=== PATIENT | male | born 1945 | race Caucasian/White ===

== ENCOUNTER 2018-11-07 06:59 | Emergency (ER) | payer BC, MEDICARE ==
[2018-11-07 07:55] LABS: Basophils % (A) 1 %; Eosinophils # (A) 0.3 k/uL (0-0.7); Eosinophils % (A) 5 %; HCT 41.1 % (39.0-53.0); HGB 13.8 gm/dL (13.0-17.5); Lymphocytes # (A) 1.9 k/uL (1.0-4.8); Lymphocytes % (A) 28 %; MCH 30.4 pg (25.0-35.0); MCHC 33.5 g/dL (31.0-37.0); MCV 90.7 fL (80.0-100.0); Mean Platelet Volume 6.4; Monocytes # (A) 0.6 k/uL (0-1.0); Monocytes % (A) 9 %; Neutrophils # (A) 3.6 k/uL (1.3-7.7); Neutrophils % (A) 54 %; Platelet Count 248 k/uL (150-450); RBC 4.53 m/uL (4.30-5.90); RDW 14.2 % (11.5-15.5); WBC 6.7 k/uL (3.8-10.6)
[2018-11-07 08:03] LABS: ALT 34 U/L (21-72); AST 45 U/L (17-59); African American GFR (CKD) >90 (>60 ml/min/1.73 sqM); Albumin 4.2 g/dL (3.5-5.0); Alkaline Phosphatase 78 U/L (38-126); Anion Gap 8 mmol/L; Blood Urea Nitrogen 18 mg/dL (9-20); Calcium 9.6 mg/dL (8.4-10.2); Carbon Dioxide 25 mmol/L (22-30); Chloride 109 mmol/L (98-107); Creatine Kinase 110 U/L (55-170); Glucose 103 mg/dL (74-99); Magnesium 1.9 mg/dL (1.6-2.3); Potassium 4.1 mmol/L (3.5-5.1); Sodium 142 mmol/L (137-145); Total Bilirubin 0.4 mg/dL (0.2-1.3)
[2018-11-07 08:06] LABS: Partial Thromboplastin Time 23.1 sec (22.0-30.0); Prothrombin Time 10.2 sec (9.0-12.0)
[2018-11-07 08:18] VITALS: TEMP 97.9
[2018-11-07 08:24] VITALS: PULSE 58
--- NOTE | 2018-11-07 08:31 | CT ---
EXAMINATION TYPE: CT brain wo con DATE OF EXAM: 11/07/2018 COMPARISON: None HISTORY: Neuro deficits CT DLP: 1099.[address] of the head is obtained. The ventricles, basal cisterns and sulci overlying the conve xities are consistent with the patient's age. Mild generalized degenerative change. The calvarium is intact. No midline shift. Intracranial atherosclerotic changes. Very minimal nonspecific white matter finding s. IMPRESSION: 1. No evidence of acute hemorrhage or mass effect. If symptoms there is clinical concern for acute ischemia correlate with MRI as clinically warranted. 2. Very minimal to mild nonspecific low-attenuation the white matter most typical remote microvascula r ischemia.
--- NOTE | 2018-11-07 08:39 | XR ---
EXAMINATION TYPE: XR cervical spine comp DATE OF EXAM: 11/07/2018 COMPARISON: NONE HISTORY: Pain TECHNIQUE: Four views are submitted. FINDINGS: The odontoid is intact. There are no compression deformities. The prevertebral soft tissue structur es are within normal limits. Severe degenerative disc disease C4-C5. Posterior spondylosis noted. Mu ltilevel mild to moderate remaining degenerative disc disease. Calcifications in the soft tissues of the neck likely related atherosclerotic change of the carotid arteries. Foraminal encroachment suspec sabiha at multiple levels bilaterally. IMPRESSION: 1. Severe degenerative disc disease C4-C5. Slight anterolisthesis of C3 relative to C4. Multilevel fo raminal encroachment suspected recommend follow-up MRI..
--- NOTE | 2018-11-07 08:40 | XR ---
EXAMINATION TYPE: XR shoulder complete RT DATE OF EXAM: 11/07/2018 COMPARISON: NONE HISTORY: Pain TECHNIQUE: Three views are submitted. FINDINGS: The osseous structures are intact. There is no acute fracture or dislocation. Arthropathy of the AC joint. Chronic rib deformities noted.. IMPRESSION: 1. AC joint arthropathy.
--- NOTE | 2018-11-07 08:40 | XR ---
EXAMINATION TYPE: XR chest 2V DATE OF EXAM: 11/07/2018 COMPARISON: NONE TECHNIQUE: PA and lateral views submitted. HISTORY: Altered mental status FINDINGS: The lungs are clear and there is no pneumothorax, pleural effusion, or focal pneumonia. Chronic rib deformities on the right noted. Atherosclerotic change aorta. Biapical pleural thickening. No overt failure. Hyperinflation suggests COPD. IMPRESSION: 1. No acute process. Correlate for COPD.
[2018-11-07 09:05] VITALS: BP 151/82; RESP 15
--- NOTE | 2018-11-07 09:47 | ED ---
Neuro HPI - General Chief Complaint: Neuro Symptoms/Deficit Stated Complaint: Hand/Arm Numbness Time Seen by Provider: 11/07/18 07:14 Source: patient, RN notes reviewed Mode of arrival: wheelchair Limitations: physical limitation - History of Present Illness Is the patient presenting with stroke symptoms?: No Initial Comments: This is a 73-year-old male with no history of stroke who states she's been having problems with right shoulder for a long time and intermittently will wake up with numbness or discomfort in his right hand which usually he is able shake off a gets better quickly this morning he had the onset this morning of pain with numbness to his second third and fourth fingers state states did not shake out like it normally does. No headache no blurry vision no focal weakness no fevers chills nausea vomiting sweats no trauma he states he was doing a lot of yard work. No history of any radicular pain or neck injury. - Related Data Home Medications: Home Medications Medication Instructions Recorded Confirmed Ascorbic Acid [Vitamin C] 500 mg PO DAILY 11/07/18 11/07/18 Aspirin EC [Ecotrin Low Dose] 81 mg PO DAILY 11/07/18 11/07/18 Calcium Carbonate [Calcium] 600 mg PO DAILY 11/07/18 11/07/18 Fish Oil/Dha/Epa [Fish Oil 1,200 2 cap PO HS 11/07/18 11/07/18 mg Fish Oil] Lisinopril [Zestril] 5 mg PO DAILY 11/07/18 11/07/18 Multivitamins, Thera [Multivitamin 1 tab PO DAILY 11/07/18 11/07/18 (formulary)] Omeprazole [PriLOSEC] 20 mg PO DAILY 11/07/18 11/07/18 Simvastatin [Zocor] 40 mg PO HS 11/07/18 11/07/18 Thiamine [Vitamin B-1] 100 mg PO DAILY 11/07/18 11/07/18 Vitamin A Acetate [Vitamin A] 10,000 unit SUBLINGUAL DAILY 11/07/18 11/07/18 Previous Rx's Medication Instructions Recorded Cyclobenzaprine [Flexeril] 10 mg PO TID #14 tab 11/07/18 predniSONE 20 mg PO BID #10 tab 11/07/18 Allergies/Adverse Reactions: Allergies Allergy/AdvReac Type Severity Reaction Status Date / Time No Known Allergies Allergy Verified 11/07/18 07:28 Review of Systems ROS Statement: Those systems with pertinent positive or pertinent negative responses have been documented in the HPI. ROS Other: All systems not noted in ROS Statement are negative. General Exam - General Exam Comments Initial Comments: This is a well-developed well-nourished awake alert oriented 3 male Limitations: physical limitation General appearance: alert, in no apparent distress Head exam: Present: atraumatic, normocephalic, normal inspection Eye exam: Present: normal appearance, PERRL, EOMI. Absent: scleral icterus, conjunctival injection, periorbital swelling ENT exam: Present: normal exam, mucous membranes moist Neck exam: Present: normal inspection, full ROM, other (No stridor JVD or bruits). Absent: tenderness, meningismus, lymphadenopathy Respiratory exam: Present: normal lung sounds bilaterally. Absent: respiratory distress, wheezes, rales, rhonchi, stridor Cardiovascular Exam: Present: regular rate, normal rhythm, normal heart sounds. Absent: systolic murmur, diastolic murmur, rubs, gallop, clicks GI/Abdominal exam: Present: soft, normal bowel sounds. Absent: distended, tenderness, guarding, rebound, rigid Extremities exam: Present: normal inspection, full ROM, tenderness (Tennis palpation of the deltoid and anterior glenoid region no step-off or crepitation mild tenderness palpation of the triceps on the right. Capillary refills less than 2 seconds no current motor vascular deficits), normal capillary refill. Absent: pedal edema, joint swelling, calf tenderness Back exam: Present: normal inspection, full ROM, tenderness (Some mild tendern ess palpation of the right trapezius and right shoulder area.). Absent: CVA tenderness (R), CVA tenderness (L), rash noted Neurological exam: Present: alert, oriented X3, CN II-XII intact, motor sensory deficit (Very fine sensory deficit to light touch over the second third and fourth fingertips) Psychiatric exam: Present: normal affect, normal mood Skin exam: Present: warm, dry, intact, normal color. Absent: rash Stroke MDM - Lab Data Result diagrams: 11/07/18 07:35 11/07/18 07:35 Lab Results 11/07/18 11/07/18 11/07/18 Range/Units 07:35 07:35 07:35 WBC 6.7 (3.8-10.6) k/uL RBC 4.53 (4.30-5.90) m/uL Hgb 13.8 (13.0-17.5) gm/dL Hct 41.1 (39.0-53.0) % MCV 90.7 (80.0-100.0) fL MCH 30.4 (25.0-35.0) pg MCHC 33.5 (31.0-37.0) g/dL RDW 14.2 (11.5-15.5) % Plt Count 248 (150-450) k/uL Neutrophils % 54 % Lymphocytes % 28 % Monocytes % 9 % Eosinophils % 5 % Basophils % 1 % Neutrophils # 3.6 (1.3-7.7) k/uL Lymphocytes # 1.9 (1.0-4.8) k/uL Monocytes # 0.6 (0-1.0) k/uL Eosinophils # 0.3 (0-0.7) k/uL Basophils # 0.0 (0-0.2) k/uL PT 10.2 (9.0-12.0) sec INR 1.0 (<1.2) APTT 23.1 (22.0-30.0) sec Sodium 142 (137-145) mmol/L Potassium 4.1 (3.5-5.1) mmol/L Chloride 109 H (98-107) mmol/L Carbon Dioxide 25 (22-30) mmol/L Anion Gap 8 mmol/L BUN 18 (9-20) mg/dL Creatinine 0.78 (0.66-1.25) mg/dL Est GFR (CKD-EPI)AfAm >90 (>60 ml/min/1.73 sqM) Est GFR (CKD-EPI)NonAf 89 (>60 ml/min/1.73 sqM) Glucose 103 H (74-99) mg/dL Calcium 9.6 (8.4-10.2) mg/dL Magnesium 1.9 (1.6-2.3) mg/dL Total Bilirubin 0.4 (0.2-1.3) mg/dL AST 45 (17-59) U/L ALT 34 (21-72) U/L Alkaline Phosphatase 78 (38-126) U/L Creatine Kinase 110 (55-170) U/L Troponin I (0.000-0.034) ng/mL Total Protein 7.0 (6.3-8.2) g/dL Albumin 4.2 (3.5-5.0) g/dL 11/07/18 Range/Units 07:35 WBC (3.8-10.6) k/uL RBC (4.30-5.90) m/uL Hgb (13.0-17.5) gm/dL Hct (39.0-53.0) % MCV (80.0-100.0) fL MCH (25.0-35.0) pg MCHC (31.0-37.0) g/dL RDW (11.5-15.5) % Plt Count (150-450) k/uL Neutrophils % % Lymphocytes % % Monocytes % % Eosinophils % % Basophils % % Neutrophils # (1.3-7.7) k/uL Lymphocytes # (1.0-4.8) k/uL Monocytes # (0-1.0) k/uL Eosinophils # (0-0.7) k/uL Basophils # (0-0.2) k/uL PT (9.0-12.0) sec INR (<1.2) APTT (22.0-30.0) sec Sodium (137-145) mmol/L Potassium (3.5-5.1) mmol/L Chloride (98-107) mmol/L Carbon Dioxide (22-30) mmol/L Anion Gap mmol/L BUN (9-20) mg/dL Creatinine (0.66-1.25) mg/dL Est GFR (CKD-EPI)AfAm (>60 ml/min/1.73 sqM) Est GFR (CKD-EPI)NonAf (>60 ml/min/1.73 sqM) Glucose (74-99) mg/dL Calcium (8.4-10.2) mg/dL Magnesium (1.6-2.3) mg/dL Total Bilirubin (0.2-1.3) mg/dL AST (17-59) U/L ALT (21-72) U/L Alkaline Phosphatase (38-126) U/L Creatine Kinase (55-170) U/L Troponin I <0.012 (0.000-0.034) ng/mL Total Protein (6.3-8.2) g/dL Albumin (3.5-5.0) g/dL - NIH Stroke Scale 1a. Level of Consciousness: (0) alert 1b. LOC Questions: (0) answers correctly 1c. LOC Commands: (0) performs tasks correctly 2. Best Gaze: (0) normal 3. Visual: (0) no visual loss 4. Facial Palsy: (0) normal symmetrical movement 5a. Motor Arm Left: (0) no drift 5b. Motor Arm Right: (0) no drift 6a. Motor Leg Left: (0) no drift 6b. Motor Leg Right: (0) no drift 7. Limb Ataxia: (0) absent 8. Sensory: (1) mild/moderate sensory loss 9. Best Language: (0) no aphasia 10. Dysarthria: (0) normal 11. Extinction/Inattention: (0) no abnormality - Medical Decision Making The patient was reevaluated his symptoms resolved the presentation is consistent with a radicular etiology. I did discuss the CT results with him which did indicate some white matter changes. X-ray showed evidence of COPD the patient is a former smoker he quit about 20 years ago. He'll be discharged with follow- up with his doctor we placed on short course of anti-inflammatories - EKG Data -: EKG Interpreted by Me EKG shows normal: sinus rhythm (sinus bradycardia rate of 56 . Interval 200 QRS 100 QT since QTC 398/[address]-T wave changes) Past Medical History Past Medical History: Cancer, Hyperlipidemia, Hypertension Additional Past Medical History / Comment(s): skin cancer History of Any Multi-Drug Resistant Organisms: None Reported Additional Past Surgical History / Comment(s): Skin Cancer Past Psychological History: No Psychological Hx Reported Smoking Status: Never smoker Past Alcohol Use History: None Reported Past Drug Use History: None Reported Course Vital Signs 11/07/18 11/07/18 11/07/18 07:02 07:30 08:00 Temperature 97.8 F 97.9 F Pulse Rate 78 58 L Respiratory 18 16 Rate Blood Pressure 159/99 158/95 O2 Sat by Pulse 98 96 Oximetry 11/07/18 11/07/18 08:30 09:00 Temperature Pulse Rate 58 L Respiratory 15 Rate Blood Pressure 140/83 151/82 O2 Sat by Pulse 95 Oximetry - Reevaluation(s) Reevaluation #1: 11/07/18 09:47 Reevaluation patient reveals resolution of the symptoms. Disposition Clinical Impression: Cervical radiculopathy Disposition: HOME SELF-CARE Condition: Good Instructions (If sedation given, give patient instructions): Cervical Radiculopathy (ED) Prescriptions: Cyclobenzaprine [Flexeril] 10 mg PO TID #14 tab predniSONE 20 mg PO BID #10 tab Is patient prescribed a controlled substance at d/c from ED?: No Referrals: Avani Yeh MD [Primary Care Provider] - 1-2 days
== END 2018-11-07 10:10 | disposition home or self-care (01) ==
LOC: EC 06:59
DX: M50.121 Cervical disc disorder at C4-C5 level with radiculopathy (principal); I10 Essential (primary) hypertension; E78.5 Hyperlipidemia, unspecified; Z79.82 Long term (current) use of aspirin; Z79.899 Other long term (current) drug therapy; Z85.828 Personal history of other malignant neoplasm of skin
CPT/HCPCS: 36415; 70450; 71046; 72050; 80053; 82550; 83735; 84484; 85025; 85610; 85730; 93005; 99284

== ENCOUNTER → 2019-02-16 | Outpatient (CLI) | payer MEDICARE ==
--- NOTE | 2019-02-16 09:44 | MR ---
EXAMINATION TYPE: MR cervical spine wo con DATE OF EXAM ORDERED: 02/16/2019 9:23 AM HISTORY: M54.12 - Radiculopathy, cervical region. TECHNOLOGIST HISTORY AT TIME OF EXAM: Pain/weakness into fingers COMPARISON: None. TECHNIQUE: Multiplanar, multiecho imaging of the cervical spine was obtained without contrast on a 1 .5 braxton magnet. FINDINGS: Prevertebral soft tissues are normal. Vertebral body height and alignment are maintained. Atlantoaxial relationships are normal. There is a normal craniocervical junction. Cord signal is normal. Visualization of the cord below the level of C6 is marked by motion artifact. At C2-C3, no definite abnormality is seen. At C3-C4, there is mild, bilateral intervertebral foraminal narrowing, slightly greater on the right than left. There is a mild, diffuse disc displacement. There is mild uncovertebral joint disease. At C4-C5, there is disc space loss and hypertrophic spondylosis present bilaterally. There is bilater al intervertebral foraminal narrowing, slightly greater on the right than the left. There is no signi ficant compressive discopathy. There is mild uncovertebral joint disease. The facets are unremarkable . At C5-C6, there is a broad-based disc protrusion touching the spinal cord without displacement or com pression. There is mild right-sided intervertebral foraminal narrowing. The facets are unremarkable. There is mild uncovertebral joint disease. At C6-C7, there is mild right-sided intervertebral foraminal narrowing. There is disc space loss. The re is a diffuse disc displacement with cord contact but without compression. The facets are unremarka ble. There is minimal uncovertebral joint disease. At C7-T1, limited views demonstrate no definite abnormality IMPRESSION: 1. MILD DIFFUSE DEGENERATIVE DISC DISEASE. 2. MULTILEVEL INTERVERTEBRAL FORAMINAL NARROWING. 3. RIGHT BASILAR PROTRUSION, C5-6 WITH CORD CONTACT BUT WITHOUT COMPRESSION.
== END | disposition home or self-care (01) ==
LOC: RADMRIMAIN 08:52
PROVIDERS: ATTEND Family Medicine
DX: M50.30 Other cervical disc degeneration, unspecified cervical region (principal); M48.04 Spinal stenosis, thoracic region
CPT/HCPCS: 72141

== ENCOUNTER → 2020-05-05 | Outpatient (CLI) | payer MEDICARE ==
--- NOTE | 2020-05-05 13:43 | P.STRESS ---
- Stress Test Note Stress Test Results/Findings: Exam Performed: stress echo exercise Exam Date: 05/05/20 Reason for Exam: DYSPNEA, HTN Height: 5 ft 11 in Weight: 82 kg Protocol: STRESS ECHO EXERCISE Stage: 2 Duration of Exercise: 4:07 Resting Heart Rate: 79 Resting Blood Pressure: 143/94 Maximum Achieved Heart Rate: 143 Maximum Achieved Blood Pressure: 196/62 85% PMHR: 122 100% PMHR: 143 METS: 5.8 Technologist Comment: Stress Test Results/Findings: Patient underwent exercise stress echo with a Dagoberto protocol treadmill stress test. Patient exercised into Stage 2 for a total of 4 minutes 7 seconds reaching a total of 5.8 METS. Patient's maximum heart rate was 143 which represented 100 % age-predicted maximum heart rate. Stress EKG portion: At baseline patient's EKG showed normal sinus rhythm, normal axis, no significant ST or T wave abnormalities. At peak exercise, EKG showed mild 0.[address] depression in the lateral leads which is nonspecific. Stress echo portion: 2-D echocardiogram was performed in the parasternal long, personal short, apical 2 and apical four-chamber views at rest, peak exercise and in recovery. At baseline, echocardiogram showed left ventricular ejection fraction 60 % without wall motion abnormalities. With peak exercise, echocardiogram shows improvement in left ventricular ejection fraction, increase contractility, decrease in left ventricular dimension without wall motion abnormalities consistent with a normal response to exercise. Conclusions: 1. Normal EKG and echo response to exercise without evidence of inducible ischemia. 2. Poor exercise capacity.
--- NOTE | 2020-05-06 08:00 | ECHOF ---
Referral Reason:I10 hypertensin R06.00 dyspnea MEASUREMENTS -------- HEIGHT: 180.3 cm WEIGHT: 81.6 kg BP: 143/94 RVIDd: 3.4 cm (< 3.3) IVSd: 1.2 cm (0.6 - 1.1) LVIDd: 4.5 cm (3.9 - 5.3) LVPWd: 1.2 cm (0.6 - 1.1) IVSs: 2.1 cm LVIDs: 2.2 cm LVPWs: 1.6 cm LA Diam: 3.2 cm (2.7 - 3.8) LAESV Index (A-L): 18.38 ml/m Ao Diam: 3.5 cm (2.0 - 3.7) AV Cusp: 2.6 cm (1.5 - 2.6) MV EXCURSION: 15.965 mm (> 18.000) MV EF SLOPE: 66 mm/s (70 - 150) EPSS: 0.4 cm MV E Hilario: 0.87 m/s MV DecT: 303 ms MV A Hilario: 1.15 m/s MV E/A Ratio: 0.75 RAP: 5.00 mmHg RVSP: 26.68 mmHg FINDINGS -------- Sinus rhythm. This was a technically good study. The left ventricular size is normal. There is borderline concentric left ventricular hypertrophy. Overall left ventricular systolic function is normal with, an EF between 60 - 65 %. The right ventricle is mildly enlarged. Normal LA size by volume 22+/-6 ml/m2. The right atrium is normal in size. Interatrial and interventricular septum intact. The aortic valve is trileaflet and appears structurally normal. The mitral valve is normal. Mild tricuspid regurgitation present. Right ventricular systolic pressure is normal at < 35 mmHg. Trace/mild (physiologic) pulmonic regurgitation. The aortic root size is normal. IVC Not well visulized. There is no pericardial effusion. CONCLUSIONS -------- 1. The left ventricular size is normal. 2. There is borderline concentric left ventricular hypertrophy. 3. Overall left ventricular systolic function is normal with, an EF between 60 - 65 %. 4. The right ventricle is mildly enlarged. 5. Normal LA size by volume 22+/-6 ml/m2. 6. Mild tricuspid regurgitation present. 7. Trace/mild (physiologic) pulmonic regurgitation. 8. There is no pericardial effusion. MEDICAL ACCOUNTANT: Gracy Amato RDCS
== END | disposition home or self-care (01) ==
LOC: RADNMMAIN 09:02
PROVIDERS: ATTEND Family Medicine
DX: I07.1 Rheumatic tricuspid insufficiency (principal); I37.1 Nonrheumatic pulmonary valve insufficiency; I11.9 Hypertensive heart disease without heart failure; R06.00 Dyspnea, unspecified
CPT/HCPCS: 93306; 93351

== ENCOUNTER → 2020-05-07 | Outpatient (CLI) | payer MEDICARE ==
--- NOTE | 2020-05-07 08:09 | US ---
EXAMINATION TYPE: US carotid duplex BILAT DATE OF EXAM: 05/07/2020 COMPARISON: NONE CLINICAL HISTORY: R09.89 Carotid Bruit, R06.00 Dyspnea. Bruit EXAM MEASUREMENTS: RIGHT: Peak Systolic Velocity (PSV) cm/sec ----- Right CCA: 105.5 ----- Right ICA: 73.9 ----- Right ECA: 73.0 ICA/CCA ratio: 0.7 RIGHT: End Diastole cm/sec ----- Right CCA: 32.8 ----- Right ICA: 32.0 ----- Right ECA: 14.5 LEFT: Peak Systolic Velocity (PSV) cm/sec ----- Left CCA: 76.3 ----- Left ICA: 98.9 ----- Left ECA: 75.3 ICA/CCA ratio: 1.3 LEFT: End Diastole cm/sec ----- Left CCA: 30.1 ----- Left ICA: 44.8 ----- Left ECA: 19.3 VERTEBRALS (direction of flow): Right Vertebral: Antegrade Left Vertebral: Antegrade Rhythm: Normal Mild peripheral plaque bilateral carotid bulb level. Velocity measurements and ratios remain within normal limits in the visualized portion of both quality assurance intern al carotid arteries. IMPRESSION: No hemodynamically significant stenosis seen in either internal carotid artery. Criteria for Assigning % of Stenosis / Diameter reduction (Estimation based on the indirect measurements of the internal carotid artery velocities (ICA PSV). 1. Normal (no stenosis)=ICA PSV < 125 cm/s: ratio < 2.0: ICA EDV<40 cm/s. 2. Less than 50% stenosis=ICA PSV < 125 cm/s: ratio < 2.0: ICA EDV<40 cm/s. 3. 50 to 69% stenosis=ICA PSV of 125 to 230 cm/s: ration 2.0 ? 4.0: ICA EDV 40-100 cm/s. 4. Greater than 70% stenosis to near occlusion= ICA PSV > 230 cm/s: ratio > 4.0: ICA EDV > 100 cm/s. 5. Near occlusion= ICA PSV velocities may be low or undetectable: variable ratio and ICA EDV. 6. Total occlusion=unable to detect flow.
== END | disposition home or self-care (01) ==
LOC: RADUSWWP 07:33
PROVIDERS: ATTEND Family Medicine
DX: R09.89 Other specified symptoms and signs involving the circulatory and respiratory systems (principal)
CPT/HCPCS: 93880

== ENCOUNTER 2022-01-15 21:42 | Emergency (ER) | payer MEDICARE ==
[2022-01-15 22:22] VITALS: BP 139/84; PULSE 89; RESP 20; TEMP 97.7
[2022-01-16 00:14] LABS: Basophils # (A) 0.1 k/uL (0-0.2); Basophils % (A) 1 %; Eosinophils # (A) 0.3 k/uL (0-0.7); Eosinophils % (A) 3 %; HCT 37.3 % (39.0-53.0); HGB 12.1 gm/dL (13.0-17.5); Lymphocytes % (A) 32 %; MCH 29.4 pg (25.0-35.0); MCHC 32.4 g/dL (31.0-37.0); MCV 90.8 fL (80.0-100.0); Monocytes # (A) 0.9 k/uL (0-1.0); Monocytes % (A) 9 %; Neutrophils # (A) 4.8 k/uL (1.3-7.7); Neutrophils % (A) 52 %; Platelet Count 303 k/uL (150-450); RBC 4.11 m/uL (4.30-5.90); RDW 13.5 % (11.5-15.5); WBC 9.3 k/uL (3.8-10.6)
[2022-01-16 00:48] LABS: Albumin 4.5 g/dL (3.5-5.0); Calcium 9.8 mg/dL (8.4-10.2); Potassium 3.9 mmol/L (3.5-5.1); Total Bilirubin 0.3 mg/dL (0.2-1.3); Total Protein 6.9 g/dL (6.3-8.2)
--- NOTE | 2022-01-16 01:55 | ED ---
GI Bleed HPI - General Chief complaint: GI Bleed Stated complaint: GI Bleed Time Seen by Provider: 01/15/22 23:55 Source: patient Mode of arrival: ambulatory Limitations: no limitations - History of Present Illness Initial comments: This patient is 76-year-old man who presents with complaint that he is not having 3 days of passing blood with stool. He states that there has been no abdominal or perianal pain. He is not having symptoms of anemia. Patient describes a stool as being loose, like diarrhea and that there is bright red blood associated. No nausea or vomiting. MD complaint: blood streaked stool Onset/Timin -: days(s) Severity scale (1-10): 0 Quality: painless Consistency: constant Improves with: none Worsens with: none Associated Symptoms: denies other symptoms - Related Data Home Medications Medication Instructions Recorded Confirmed Ascorbic Acid [Vitamin C] 500 mg PO DAILY 11/07/18 11/07/18 Aspirin EC [Ecotrin Low Dose] 81 mg PO DAILY 11/07/18 11/07/18 Calcium Carbonate [Calcium] 600 mg PO DAILY 11/07/18 11/07/18 Fish Oil/Dha/Epa [Fish Oil 1,200 2 cap PO HS 11/07/18 11/07/18 mg Fish Oil] Multivitamins, Thera [Multivitamin 1 tab PO DAILY 11/07/18 11/07/18 (formulary)] Omeprazole [PriLOSEC] 20 mg PO DAILY 11/07/18 11/07/18 Simvastatin [Zocor] 40 mg PO HS 11/07/18 11/07/18 Thiamine [Vitamin B-1] 100 mg PO DAILY 11/07/18 11/07/18 Vitamin A Acetate [Vitamin A] 10,000 unit SUBLINGUAL DAILY 11/07/18 11/07/18 lisinopriL [Zestril] 5 mg PO DAILY 11/07/18 11/07/18 Previous Rx's Medication Instructions Recorded Cyclobenzaprine [Flexeril] 10 mg PO TID #14 tab 11/07/18 predniSONE [Deltasone] 20 mg PO BID #10 tab 11/07/18 Omeprazole 40 mg PO DAILY #10 cap 01/16/22 Allergies Allergy/AdvReac Type Severity Reaction Status Date / Time No Known Allergies Allergy Verified 01/15/22 22:22 Review of Systems ROS Statement: Those systems with pertinent positive or pertinent negative responses have been documented in the HPI. ROS Other: All systems not noted in ROS Statement are negative. Constitutional: Denies: fever, chills Respiratory: Denies: cough, dyspnea Cardiovascular: Denies: chest pain, palpitations, edema Gastrointestinal: Reports: diarrhea, hematochezia. Denies: abdominal pain, nausea, vomiting, constipation, melena Genitourinary: Denies: dysuria, hematuria Musculoskeletal: Denies: back pain Skin: Denies: rash Neurological: Denies: headache, weakness, numbness Past Medical History Past Medical History: Cancer, Hyperlipidemia, Hypertension Additional Past Medical History / Comment(s): skin cancer History of Any Multi-Drug Resistant Organisms: None Reported Additional Past Surgical History / Comment(s): Skin Cancer Past Psychological History: No Psychological Hx Reported Smoking Status: Never smoker Past Alcohol Use History: Occasional Past Drug Use History: None Reported General Exam Limitations: no limitations General appearance: alert, in no apparent distress Head exam: Present: atraumatic, normocephalic Eye exam: Present: normal appearance. Absent: scleral icterus, conjunctival injection ENT exam: Present: normal oropharynx Neck exam: Present: normal inspection Respiratory exam: Present: normal lung sounds bilaterally. Absent: respiratory distress, wheezes, rales, rhonchi, stridor Cardiovascular Exam: Present: regular rate, normal rhythm, normal heart sounds. Absent: systolic murmur, diastolic murmur, rubs, gallop GI/Abdominal exam: Present: soft. Absent: distended, tenderness, guarding, rebound, rigid, mass, pulsatile mass, hernia Extremities exam: Present: normal inspection, normal capillary refill. Absent: pedal edema, calf tenderness Back exam: Present: normal inspection. Absent: CVA tenderness (R), CVA tenderness (L) Neurological exam: Present: alert Skin exam: Present: warm, dry, intact, normal color. Absent: rash Course Vital Signs 01/15/22 22:16 Temperature 97.7 F Pulse Rate 89 Respiratory 20 Rate Blood Pressure 139/84 O2 Sat by Pulse 98 Oximetry Medical Decision Making - Lab Data Result diagrams: 01/16/22 00:03 01/16/22 00:03 Lab Results 01/16/22 01/16/22 01/16/22 Range/Units 00:03 00:03 00:03 WBC 9.3 (3.8-10.6) k/uL RBC 4.11 L (4.30-5.90) m/uL Hgb 12.1 L (13.0-17.5) gm/dL Hct 37.3 L (39.0-53.0) % MCV 90.8 (80.0-100.0) fL MCH 29.4 (25.0-35.0) pg MCHC 32.4 (31.0-37.0) g/dL RDW 13.5 (11.5-15.5) % Plt Count 303 (150-450) k/uL MPV 7.0 Neutrophils % 52 % Lymphocytes % 32 % Monocytes % 9 % Eosinophils % 3 % Basophils % 1 % Neutrophils # 4.8 (1.3-7.7) k/uL Lymphocytes # 3.0 (1.0-4.8) k/uL Monocytes # 0.9 (0-1.0) k/uL Eosinophils # 0.3 (0-0.7) k/uL Basophils # 0.1 (0-0.2) k/uL APTT 21.6 L (22.0-30.0) sec Sodium 140 (137-145) mmol/L Potassium 3.9 (3.5-5.1) mmol/L Chloride 106 (98-107) mmol/L Carbon Dioxide 21 L (22-30) mmol/L Anion Gap 13 mmol/L BUN 29 H (9-20) mg/dL Creatinine 1.33 H (0.66-1.25) mg/dL Est GFR (CKD-EPI)AfAm 59 (>60 ml/min/1.73 sqM) Est GFR (CKD-EPI)NonAf 51 (>60 ml/min/1.73 sqM) Glucose 116 H (74-99) mg/dL Calcium 9.8 (8.4-10.2) mg/dL Total Bilirubin 0.3 (0.2-1.3) mg/dL AST 41 (17-59) U/L ALT 35 (4-49) U/L Alkaline Phosphatase 72 (38-126) U/L Troponin I (0.000-0.034) ng/mL Total Protein 6.9 (6.3-8.2) g/dL Albumin 4.5 (3.5-5.0) g/dL Blood Type Blood Type Confirm Blood Type Recheck Bld Type Recheck Status Antibody Screen Spec Expiration Date 01/16/22 01/16/22 01/16/22 Range/Units 00:03 00:15 00:20 WBC (3.8-10.6) k/uL RBC (4.30-5.90) m/uL Hgb (13.0-17.5) gm/dL Hct (39.0-53.0) % MCV (80.0-100.0) fL MCH (25.0-35.0) pg MCHC (31.0-37.0) g/dL RDW (11.5-15.5) % Plt Count (150-450) k/uL MPV Neutrophils % % Lymphocytes % % Monocytes % % Eosinophils % % Basophils % % Neutrophils # (1.3-7.7) k/uL Lymphocytes # (1.0-4.8) k/uL Monocytes # (0-1.0) k/uL Eosinophils # (0-0.7) k/uL Basophils # (0-0.2) k/uL APTT (22.0-30.0) sec Sodium (137-145) mmol/L Potassium (3.5-5.1) mmol/L Chloride (98-107) mmol/L Carbon Dioxide (22-30) mmol/L Anion Gap mmol/L BUN (9-20) mg/dL Creatinine (0.66-1.25) mg/dL Est GFR (CKD-EPI)AfAm (>60 ml/min/1.73 sqM) Est GFR (CKD-EPI)NonAf (>60 ml/min/1.73 sqM) Glucose (74-99) mg/dL Calcium (8.4-10.2) mg/dL Total Bilirubin (0.2-1.3) mg/dL AST (17-59) U/L ALT (4-49) U/L Alkaline Phosphatase (38-126) U/L Troponin I <0.012 (0.000-0.034) ng/mL Total Protein (6.3-8.2) g/dL Albumin (3.5-5.0) g/dL Blood Type A Positive Blood Type Confirm A Positive Blood Type Recheck No Previous Record Bld Type Recheck Status CABO Indicated Antibody Screen NEGATIVE Spec Expiration Date 01/19/20222314 Disposition Clinical Impression: GI bleeding Disposition: HOME SELF-CARE Condition: Good Instructions (If sedation given, give patient instructions): Gastrointestinal Bleeding (ED) Prescriptions: Omeprazole 40 mg PO DAILY #10 cap Is patient prescribed a controlled substance at d/c from ED?: No Referrals: Patrica Rivera MD [Primary Care Provider] - 1-2 days
[2022-01-16] MEDS ORDERED: SULFAMETHOX-TMP 800-160MG 1 EACH TAB PO STA (04:13)
== END 2022-01-16 05:04 | disposition home or self-care (01) ==
LOC: EC 21:42
DX: K92.2 Gastrointestinal hemorrhage, unspecified (principal); E78.5 Hyperlipidemia, unspecified; I10 Essential (primary) hypertension
CPT/HCPCS: 36415; 80053; 84484; 85025; 85730; 86850; 86900; 86901

== ENCOUNTER 2022-02-01 09:42 | Day surgery (SDC) | payer MEDICARE ==
[2022-01-31 08:23] VITALS: BMI 24.4
[~2022-02-01 09:42] MED LIST: LACTATED RINGERS 1,000 ML IV SCH; LIDOCAINE 1% (10MG/ML) FOR IV START INTRADERMA PRN
[2022-02-01] MEDS ORDERED: LACTATED RINGERS 1,000 ML IV ONE (10:09)
[2022-02-01 10:21] VITALS: TEMP 97.8
[2022-02-01] MEDS ORDERED: PROPOFOL 10 MG/ML 20 ML VIAL IV ONE (11:10)
[2022-02-01] MEDS ORDERED: LIDOCAINE 2% INJ 20 MG/ML (2 ML VIAL) ONE (11:10)
--- NOTE | 2022-02-01 11:28 | P.PCN ---
Date of Procedure: 02/01/22 Procedure(s) Performed: BRIEF HISTORY: Patient is a 76-year-old pleasant white male scheduled for an elective colonoscopy as a part of evaluation of intermittent rectal bleeding for the last few days duration. PROCEDURE PERFORMED: Colonoscopy with biopsy. PREOPERATIVE DIAGNOSIS: Intermittent rectal bleeding. IV sedation per Anesthesia. PROCEDURE: After informed consent was obtained, the patient, was brought into the endoscopy unit. IV sedation was administered by Anesthesia under continuous monitoring. Digital rectal examination was normal. Initially the Olympus CF-160 flexible video colonoscope was then inserted in the rectum, gradually advanced into the cecum without any difficulty. Careful examination was performed as the scope was gradually being withdrawn. Ileocecal valve and the appendiceal orifice were visualized and appeared normal. Prep was excellent. Mucosa of the cecum, appeared normal. Ascending colon there was a 2 mm and 3 mm sessile polyps removed by ascencold biopsy. In the descending colon there was a 3 mm polyp removed by cold biopsy. Rest of the transverse colon, descending colon, sigmoid colon, and rectum appeared normal.scattered sigmoid diverticulosis seen. Retroflexion was performed in the rectum and no lesions were seen. The patient tolerated the procedure well. IMPRESSION: 2 mm and 3 mm ascending colon polyp status post cold biopsy 3 mm sessile descending colon polyp status post cold biopsy Scattered sigmoid diverticulosis Grade 2 internal hemorrhoids RECOMMENDATIONS: Findings of this examination were discussed with the patient as well as his family. He was advised to be a high-fiber diet and take fiber supplements a regular basis. Follow with the biopsy results. If the biopsy reveals adenoma he can have a repeat colonoscopy in 5 years..
[2022-02-01 11:36] VITALS: RESP 16
[2022-02-01 11:46] VITALS: BP 114/73; PULSE 65
== END 2022-02-01 12:00 | disposition home or self-care (01) ==
LOC: ORWHC2ENDO 09:42
PROVIDERS: ATTEND Internal Medicine Gastroenterology
DX: D12.4 Benign neoplasm of descending colon (principal); D12.2 Benign neoplasm of ascending colon; K57.30 Diverticulosis of large intestine without perforation or abscess without bleeding; K64.8 Other hemorrhoids; I10 Essential (primary) hypertension; E78.5 Hyperlipidemia, unspecified
CPT/HCPCS: 88305; 45380; J2704; J2001